=== PATIENT | male | born 1935 | race Caucasian/White ===

== ENCOUNTER 2018-11-15 09:47 | Inpatient (IN) ==
--- NOTE | 2018-11-15 10:15 | ERNOTE ---
Trauma/Assault HPI - Narrative Date of Service: 11/15/18 - General Stated Complaint: FALL Time Seen by Provider: 11/15/18 09:57 Source: patient, EMS Exam Limitations: no limitations - Immun/Allergies/Home Medications Immunizations: IMMUNIZATION HX Immunizations Up to Date Yes History of Influenza Vaccine Yes Hx Pneumococcal Vaccination Yes Allergies/Adverse Reactions: Allergies No Known Allergies Allergy (Verified 11/15/18 13:25) Home Medications: HOME MEDICATIONS Vit A/C/E/Zinc/Selenium/Copper [Vision Formula Tablet] 1 tab PO DAILY 04/01/18 [Last Taken Unknown] thiamine HCl (vitamin B1) 50 mg tablet 50 mg PO DAILY 04/06/18 [Last Taken Unknown] vitamin B complex tablet 1 tab PO DAILY 04/06/18 [Last Taken Unknown] - History of Present Illness Narrative: This patient is an 83-year-old gentleman who arrived by ambulance with a right leg injury. He slipped on the ice this morning and fell. He hit the back of his head. He is not sure if he lost consciousness. He denied headache to the nurse but told me he had a little bit of a headache. He also admits to a little bit of neck pain. When the ambulance arrived, he was alert and oriented x4 with no amnesia. His main complaint is right leg pain. He says that it hurts in his hip. He was noted to have shortening and external rotation by the paramedics. He also complains of right elbow pain. He received 50 mcg of fentanyl in the ambulance and again on arrival. Review of Systems - Narrative Narrative: His last intake was coffee and cereal at 5 AM. He denies high blood pressure, diabetes, heart disease. He takes only vitamins. - Review of Systems Constitutional: Absent: fever EYE: Absent: vision changes ENT: Absent: ear pain, nose congestion, nasal drainage, sore throat Respiratory: Absent: shortness of breath, cough Cardiology: Absent: chest pain, palpitations, syncope Gastrointestinal/Abdominal: Absent: nausea, vomiting, diarrhea, constipation, abdominal pain Genitourinary: Absent: frequency, pain, dysuria, hematuria Musculoskeletal: Present: neck pain, joint pain. Absent: back pain Skin: Present: other - Abrasion right forearm Neurological: Present: headache. Absent: anxiety, depressed, dizziness/light- headedness, numbness, tingling Endocrine: Present: no symptoms reported, other - No diabetes Hematologic/Lymphatic: Present: other - He is not on a blood thinner Psych: Absent: anxiety, depressed Medical History (Last Reviewed 11/15/18 @ 10:12 by Jacob Bates MD) Weight loss, abnormal (Acute) Chronic alcoholism (Chronic) Closed compression fracture of L2 lumbar vertebra (Chronic) Balance disorder (Chronic) Closed compression fracture of second lumbar vertebra (Acute) Onset Date: ~04/01/18 Cerebellar atrophy Onset Date: ~04/04/18 Elevated bilirubin Onset Date: ~04/01/18 EtOH dependence Onset Date: ~04/01/18 Frequent falls Onset Date: ~04/01/18 Peripheral neuropathy Onset Date: ~04/01/18 Restless leg syndrome Onset Date: Unknown Elbow pain, right Onset Date: ~04/29/15 due to fx Fracture, ulna, proximal Onset Date: ~04/2015 Right proximal olecranon ulna Surgical History: Surgical History (Last Reviewed 11/15/18 @ 10:12 by Jacob Bates MD) History of colonoscopy Onset Date: ~2013 Dr. Grullon[facility] History of open reduction and internal fixation (ORIF) procedure Onset Date: ~05/03/15 Right proximal olecranon ulna History of vasectomy Onset Date: ~1967 Family History: Family History (Last Reviewed 11/15/18 @ 13:38 by Deepika Cunha RN) Father , 54-MS No problems noted. Mother , 69 Colon cancer Social History: Preferred Language [place] Do you have any spiritism or No cultural preference? Smoking Status Former smoker Abuse History No History of abuse Psych History No pertinent hx Alcohol Use heavy Drug Use none (Last Updated 11/12/18 @ 11:39 by Timo Dejesus DO) No Social History Section defined Physical Exam - Physical Exam General Appearance: Present: wd/wn, alert, no apparent distress Head Exam: Present: normal inspection, no evidence of injury Eye Exam: Normal inspection: bilateral Ears, Nose, Throat: Present: normal ENT inspection Neck: Present: normal inspection, supple, other - Mild tenderness posteriorly Respiratory: Present: no respiratory distress, normal breath sounds, chest nontender, lungs clear Cardiovascular/Chest: Present: regular rate, rhythm, no murmur, normal p eripheral pulses Gastrointestinal/Abdominal: Present: normal bowel sounds, nontender, nondistended, soft, no organomegaly Extremity Exam: Present: no edema, other - The right femur appears to have deformity just proximal to the midportion. He has tenderness in that area and tenderness over the lateral right hip. Distal sensation and pulses are intact. He has no tenderness over the right shoulder or elbow. He has some tenderness and an abrasion of the ulnar aspect of the proximal forearm on the right. No wrist or hand tenderness. He has full range of motion of the right arm. Sensation and circulation are intact. Neurological Exam: Present: alert, oriented, normal mood/affect Skin Exam: Present: normal color, warm/dry Progress - Results and Orders Patient's Lab Results:: I have reviewed the patient's lab results. Results and Orders: Laboratory Tests 11/15/18 11/15/18 11/15/18 10:10 10:10 10:20 WBC 5.2 D Hgb 13.0 L Plt Count 158 Plasma Sodium 137 Potassium 4.2 Chloride 100 Carbon Dioxide 25.6 BUN 14 Creatinine 0.91 Random Glucose 127 H D AST 18 ALT 13 L Alkaline Phosphatase 81 Ethyl Alcohol Less than 3.0 - Vital Signs Patient's Vital Signs:: I have reviewed the patient's vital signs. Vital Signs: Vital Signs 11/15/18 09:48 11/15/18 10:01 Temperature 36.7 C Pulse Rate 56 L 58 L Respiratory Rate 16 16 Blood Pressure 172/88 H 167/84 H O2 Sat by Pulse Oximetry 100 100 - X-Ray X-Ray #1 X-Ray: hip Interpretation: Reviewed by me X-ray Comments: X-RAY REPORT ~[id number] CT/CT Head W/O *~ Exam Date: 11/15/2018 10:13 Ordering Physician: Jacob Bates MD HISTORY: Head trauma Additional history from technologist: fall last couple weeks, fell last night and again this morning, diabetic TECHNIQUE: Multiple noncontrast axial CT images of the head were obtained. Dose reduction techniques using the adjustment of the mA and/or kV according to patient size and/or use of AEC or iterative reconstruction were used in the acquisition of this exam. COMPARISON: 08/06/2013 FINDINGS: CT Head W/O *: Mild cerebral volume loss present, most likely age-related. No acute intracranial hemorrhage. No midline shift or herniation. [place] and white matter differentiation is grossly intact. No obvious soft tissue swelling or scalp hematoma noted. Skull grossly intact, without signs of depressed skull fracture. Visualized portions of the paranasal sinuses are clear. Mastoid air cells are grossly clear. IMPRESSION: 1. No acute intracranial hemorrhage or mass effect. 2. Additional comments as above. Electronically signed by Ana Joseph M.D.. Ana Joseph MD X-Ray #2 X-Ray: femur Interpretation: Reviewed by me X-ray Comments: X-RAY REPORT ~[id number] RAD/Femur 2 Views RT *~ Exam Date: 11/15/2018 10:46 Ordering Physician: Jacob Bates MD HISTORY/INDICATION: fall with pain Additional history from technologist: fall rt hip pain TECHNIQUE: AP and lateral views of the Right Femur. 6 images. COMPARISONS: None available. Femur 2 Views RT * There is a comminuted, displaced and mildly impacted fracture of the proximal right femur at the intertrochanteric/subtrochanteric region. There may be a rotatory component to the displacement of the distal fragment. Joint spaces are grossly unremarkable, as visualized. Soft tissues are grossly normal. IMPRESSION: Comminuted, displaced and mildly impacted fracture of the proximal right femur at the intertrochanteric/subtrochanteric region. Electronically signed by Ana Joseph M.D.. X-Ray #3 X-Ray: chest Interpretation: Reviewed by me X-ray Comments: X-RAY REPORT ~[id number] RAD/Chest Single View *~ Exam Date: 11/15/2018 10:56 Ordering Physician: Jacob Bates MD HISTORY: pre-op Additional history from other imaging: right proximal femoral intertrochanteric/subtrochanteric fracture. TECHNIQUE: 2 supine AP views of the chest were obtained . COMPARISONS: 04/06/2018 FINDINGS: Chest Single View *: Somewhat hyperinflated lungs with flattened hemidiaphragms, stable. No definite consolidation. Right basilar scarring, stable. Pulmonary vasculature is normal. No pneumothorax or pleural fluid collections apparent. Cardiac size within normal limits for AP technique. Vascular calcification overlying the aortic knob, stable. Trachea is in normal position given patient positioning. Osseous structures are grossly intact. IMPRESSION: 1. No acute cardiopulmonary findings. 2. Hyperinflated and flattened hemidiaphragms suggestive of underlying emphysema/COPD. Correlate clinically for risk factors. 3. Thoracic aortic atherosclerotic disease. Electronically signed by Ana Joseph M.D.. - CT/Ultrasound CT/Ultrasound Narrative: X-RAY REPORT ~[id number] CT/CT Cervical W/O *~ Exam Date: 11/15/2018 10:40 Ordering Physician: Jacob Bates MD HISTORY: fall with pain TECHNIQUE: Multiple noncontrast axial CT images of the cervical spine were obtained. Sagittal and coronal reconstructed images were also submitted for interpretation. Dose reduction techniques using the adjustment of the mA and/or kV according to patient size and/or use of AEC or iterative reconstruction were used in the acquisition of this exam. COMPARISON: No previous study available. FINDINGS: CT Cervical W/O *, with Coronal and Sagittal Reconstructions: Axial images demonstrate no definable fracture lucency or cortical discontinuity. Sagittal reconstructions demonstrate grossly normal craniocervical junction. Atlantodens interval demonstrates degenerative changes without abnormal widening. Prevertebral soft tissues are unremarkable. Vertebral bodies maintain normal height and alignment. Disc space narrowing, endplate degenerative changes and uncovertebral osteophytes are noted at C3-C4 and C5-C6 levels. Facet joints are in normal alignment. Facet joint degenerative changes noted predominantly affecting the right C2-C3, C4-C5 levels, and left C3-C4 level. Spinous processes are intact. Coronal reconstructions demonstrate intact C2 dens. Normal articulation of the C1 lateral masses with C2 and the occipital condyles. Lung apices are clear. Soft tissues of the neck grossly unremarkable other than vascular calcifications along the carotid artery suggestive of carotid artery atherosclerotic disease. IMPRESSION: 1. No evidence of acute cervical spine fracture. 2. Multilevel cervical spine degenerative disc disease/facet joint degenerative arthropathy. 3. Incidental bilateral carotid artery atherosclerotic disease. Clinical correlation is still recommended. If there is a persistent clinical concern for injury, consider further evaluation by MRI. Electronically signed by Ana Joseph M.D.. X-RAY REPORT ~[id number] CT/CT Head W/O *~ Exam Date: 11/15/2018 10:04 Ordering Physician: Jacob Bates MD HISTORY: fall with pain Additional history from technologist: None TECHNIQUE: Multiple noncontrast axial CT images of the head were obtained. Dose reduction techniques using the adjustment of the mA and/or kV according to patient size and/or use of AEC or iterative reconstruction were used in the acquisition of this exam. COMPARISON: 02/27/2018 FINDINGS: CT Head W/O *: Age-related cortical atrophy and periventricular white matter chronic ischemic changes are present. Intracranial atherosclerotic calcifications noted. Posterior fossa arachnoid cyst, stable. No acute intracranial hemorrhage. No midline shift or herniation. [place] and white matter differentiation is grossly intact. No obvious soft tissue swelling or scalp hematoma noted. Skull grossly intact, without signs of depressed skull fracture. There is a trace amount of fluid in the left maxillary sinus. Mastoid air cells are grossly clear. IMPRESSION: 1. No acute intracranial hemorrhage or mass effect. 2. Trace amount of fluid within the left maxillary sinus, which may be related to incidental sinusitis but correlate clinically for maxillary/facial bone injury. 3. Additional comments as above. Electronically signed by Ana Joseph M.D.. Ana Joseph MD - Progress/Reassessment Chief Complaint: Fall Departure Clinical Impression: Intertrochanteric fracture of right femur Qualifiers: Encounter type: initial encounter Fracture type: closed Fracture alignment: displaced Qualified Code(s): S72.141A - Displaced intertrochanteric fracture of right femur, initial encounter for closed fracture - Departure Disposition: Still a patient Condition: Fair Critical Care Time - Critical Care Critical Time Spent:: No
[2018-11-15 10:16] LABS: Hematocrit 37.2 % (42.0-52.0); Mean Cell Volume 101.6 fl (78-100); Mean Corpuscular Hemoglobin 35.5 pg (27-31); Mean Corpuscular Hgb Conc 34.9 g/dl (32-36); Mean Platelet Volume 9.4 fl (8-11.3); Neutrophil # 3.2 K/mm3 (1.3-6.0); Neutrophil % 61.1 % (42-75.0); Platelet Count 158 K/mm3 (150-450); Red Blood Count 3.66 M/mm3 (4.7-6.0); Red Cell Distribution Width 12.4 % (11.5-14.0); White Blood Count 5.2 K/mm3 (4.0-10.5)
[2018-11-15 10:28] LABS: Albumin * 3.7 gm/dl (3.4-5.0); Anion Gap 15.6 mmol/L (6.8-13.8); BUN/Creatinine Ratio 15.4 (9.0-21.6); Bilirubin, Total 0.9 mg/dL (0.0-1.1); Ca. Corrected For Albumin 8.3 mg/dL (8.4-10.2); Calcium * 8.4 mg/dL (7.9-10.9); Carbon Dioxide 25.6 mmol/L (24-32.6); Potassium 4.2 mmol/L (3.4-4.6); Total Protein 7.4 gm/dL (6.2-8.2)
[2018-11-15] MEDS ORDERED: MORPHINE SULFATE 4 MG/ML SYRG IV ONE (10:34)
[2018-11-15] MEDS ORDERED: LORazepam 2 MG/ML DISP.SYRIN IV ONE (10:45)
[2018-11-15] MEDS ORDERED: LORazepam 2 MG/ML DISP.SYRIN ONE (10:46)
[2018-11-15] MEDS ORDERED: DIPHTH,PERTUSS(ACELL),TET VAC 0.5 ML VIAL IM ONE (10:57)
--- NOTE | 2018-11-15 13:05 | HP ---
Chief Complaint - Chief Complaint Date of Service: 11/15/18 Time of Service: 12:15 Chief Complaint: Bert casillas is an 83-year-old male who was out walking on the snow and slipped on the underlying ice and fell onto his right hip. He was unable to get up due to severe pain.. History of Present Illness: A neighbor saw him fall and summoned help. He also landed on his right forearm and elbow and has a abrasion to that. He is able to flex and extend and rotate the arm and shoulder without difficulty. Initially he had some pain in the right shoulder but that seems to have dissipated. I just met Bert in the office last week and did a physical exam at that time. He actually enjoys very good health, takes no medications, and doesn't doctor very often. He does drink alcohol to excess and drinks between a 6 and a 12 pack each day. His laboratory work is completely normal including liver enzymes. Medical History (Last Reviewed 11/15/18 @ 10:12 by Jacob Bates MD) Weight loss, abnormal (Acute) Chronic alcoholism (Chronic) Closed compression fracture of L2 lumbar vertebra (Chronic) Balance disorder (Chronic) Closed compression fracture of second lumbar vertebra (Acute) Onset Date: ~04/01/18 Cerebellar atrophy Onset Date: ~04/04/18 Elevated bilirubin Onset Date: ~04/01/18 EtOH dependence Onset Date: ~04/01/18 Frequent falls Onset Date: ~04/01/18 Peripheral neuropathy Onset Date: ~04/01/18 Restless leg syndrome Onset Date: Unknown Elbow pain, right Onset Date: ~04/29/15 due to fx Fracture, ulna, proximal Onset Date: ~04/2015 Right proximal olecranon ulna Surgical History: Surgical History (Last Reviewed 11/15/18 @ 10:12 by Jacob Bates MD) History of colonoscopy Onset Date: ~2013 Dr. [facility]ullon[facility] History of open reduction and internal fixation (ORIF) procedure Onset Date: ~05/03/15 Right proximal olecranon ulna History of vasectomy Onset Date: ~1967 Family History: Family History (Last Reviewed 11/15/18 @ 09:58 by Shweta Mast RN) Father , 54-MS No problems noted. Mother , 69 Colon cancer Social History: Preferred Language [place] Citizen Do you have any congregational or No cultural preference? Smoking Status Former smoker Abuse History No History of abuse Psych History No pertinent hx Alcohol Use heavy Drug Use none (Last Updated 11/12/18 @ 11:39 by Timo Dejesus DO) No Social History Section defined Review Of Systems (GEN) - Review of Systems Generalized/Overall Review: Present: Malaise EENTM: Present: No Symptoms Reported Respiratory: Present: No Symptoms Reported Cardiac: Present: No Symptoms Reported Abdominal: Present: No Symptoms Reported Genitourinary: Present: No Symptoms Reported Musculoskeletal: Present: Joint Pain - Right hip Neurological: Present: No Symptoms Reported Skin: Present: No Symptoms Reported Endocrine: Present: No Symptoms Reported Misc: All systems neg except as marked Immunizations: IMMUNIZATION HX Immunizations Up to Date Yes History of Influenza Vaccine Yes Hx Pneumococcal Vaccination Yes Allergies/Adverse Reactions: Allergies Allergy/AdvReac Type Severity Reaction Status Date / Time No Known Allergies Allergy Verified 07/08/18 10:12 Home Medications: HOME MEDICATIONS Vit A/C/E/Zinc/Selenium/Copper [Vision Formula Tablet] 1 tab PO DAILY 04/01/18 [Last Taken Unknown] thiamine HCl (vitamin B1) 50 mg tablet 50 mg PO DAILY 04/06/18 [Last Taken Unknown] vitamin B complex tablet 1 tab PO DAILY 04/06/18 [Last Taken Unknown] Exam - Exam Vital Signs: Vital Signs - Last Taken Temp 36.7 C 11/15/18 09:48 Pulse 60 11/15/18 10:12 Resp 14 11/15/18 10:12 BP 156/74 H 11/15/18 10:12 Pulse Ox 100 11/15/18 10:12 Constitutional: Present: Alert, Oriented x3, Cooperative, Well developed, Well nourished, No distress ENT Exam: Present: normal ENT inspection, hearing grossly normal, pharynx normal, TMs normal Eye Exam: bilateral eye: normal inspection, PERRL, EOMI Neck: Present: non-tender, full range of motion, supple, normal inspection, trachea midline Back Exam: Present: normal inspection, no CVA tenderness, no vertebral tenderness Breasts: Present: Exam deferred Respiratory: Present: chest non-tender, lungs clear, normal breath sounds, no respiratory distress, no accessory muscle use Cardiovascular/Chest: Present: normal peripheral pulses, regular rate, rhythm, no chest tenderness, no edema, no gallop, no JVD, no murmur, no rub Peripheral Pulses: carotid (R): 2+, carotid (L): 2+, radial (R): 2+, radial (L): 2+ Abdomen: Present: Normal bowel sounds, soft, nontender, nondistended, no rebound tenderness, no hepatospenomegaly, no masses /Rectal: Present: Exam deferred Extremity: Present: normal range of motion - Except the right hip which is externally rotated and shortened. 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, no motor/sensory deficits, alert, normal mood/affect, oriented x 3 Appearance: Present: appropriate appearance, appropriate insight, neat, no memory impairment Eye contact: Present: cooperative, good eye contact, normal speech, avoids eye contact Thoughts: Present: normal thought pattern, no apparent hallucination Diagnostic Studies: Abnormal Lab Results 11/15/18 11/15/18 Range/Units 10:10 10:10 RBC 3.66 L (4.7-6.0) M/mm3 Hgb 13.0 L (13.5-18.0) gm/dL Hct 37.2 L (42.0-52.0) % MCV 101.6 H (78-100) fl MCH 35.5 H (27-31) pg Lymphocytes # 1.43 L (1.5-3.5) k/mm3 Anion Gap 15.6 H (6.8-13.8) mmol/L Random Glucose 127 H D (70-110) mg/dL Calcium Adj for Albumin 8.3 L (8.4-10.2) mg/dL ALT 13 L (19-67) U/L Laboratory Results WBC 5.2 K/mm3 (4.0-10.5) D 11/15/18 10:10 RBC 3.66 M/mm3 (4.7-6.0) L 11/15/18 10:10 Hgb 13.0 gm/dL (13.5-18.0) L 11/15/18 10:10 Hct 37.2 % (42.0-52.0) L 11/15/18 10:10 MCV 101.6 fl (78-100) H 11/15/18 10:10 MCH 35.5 pg (27-31) H 11/15/18 10:10 MCHC 34.9 g/dl (32-36) 11/15/18 10:10 RDW 12.4 % (11.5-14.0) 11/15/18 10:10 Plt Count 158 K/mm3 (150-450) 11/15/18 10:10 MPV 9.4 fl (8-11.3) 11/15/18 10:10 Immature Gran % (Auto) 0.40 % (0.001-0.429) 11/15/18 10:10 Immature Gran # (Auto) 0.02 K/mm3 (0.000-0.0310) 11/15/18 10:10 Neutrophils % 61.1 % (42-75.0) 11/15/18 10:10 Lymphocytes % 27.7 % (20-51) 11/15/18 10:10 Monocytes % 8.3 % (0.0-9) 11/15/18 10:10 Eosinophils % 1.9 % (0.0-3.0) 11/15/18 10:10 Basophils % 0.6 % (0.0-1.0) 11/15/18 10:10 Nucleated RBC % 0.0 k/mm3 (0-1) 11/15/18 10:10 Neutrophils # 3.2 K/mm3 (1.3-6.0) 11/15/18 10:10 Lymphocytes # 1.43 k/mm3 (1.5-3.5) L 11/15/18 10:10 Monocytes # 0.4 k/mm3 (0.0-1.0) 11/15/18 10:10 Eosinophils # 0.1 k/mm3 (0.0-0.7) 11/15/18 10:10 Absolute Basophils 0.0 k/mm3 (0.0-0.1) 11/15/18 10:10 Sodium 137 mmol/L (132-142) 11/15/18 10:10 Plasma Sodium 137 mmol/L (130-142) 11/15/18 10:10 Potassium 4.2 mmol/L (3.4-4.6) 11/15/18 10:10 Chloride 100 mmol/L (97-106) 11/15/18 10:10 Carbon Dioxide 25.6 mmol/L (24-32.6) 11/15/18 10:10 Anion Gap 15.6 mmol/L (6.8-13.8) H 11/15/18 10:10 BUN 14 mg/dL (6-23) 11/15/18 10:10 Creatinine 0.91 mg/dL (0.4-1.4) 11/15/18 10:10 Est GFR (Non-Af Amer) 85 mL/min (60-130) 11/15/18 10:10 BUN/Creatinine Ratio 15.4 (9.0-21.6) 11/15/18 10:10 Random Glucose 127 mg/dL (70-110) H D 11/15/18 10:10 Calcium 8.4 mg/dL (7.9-10.9) 11/15/18 10:10 Calcium Adj for Albumin 8.3 mg/dL (8.4-10.2) L 11/15/18 10:10 Total Bilirubin 0.9 mg/dL (0.0-1.1) 11/15/18 10:10 AST 18 U/L (0-48) 11/15/18 10:10 ALT 13 U/L (19-67) L 11/15/18 10:10 Alkaline Phosphatase 81 U/L (50-170) 11/15/18 10:10 Total Protein 7.4 gm/dL (6.2-8.2) 11/15/18 10:10 Albumin 3.7 gm/dl (3.4-5.0) 11/15/18 10:10 Ethyl Alcohol Less than 3.0 mg/dL (0.0-10.0) 11/15/18 10:20 Assessment/Plan - Narrative Narrative: 1. I reviewed the x-rays, EKG, and lab work as well as performed a physical exam in preparation for ORIF of the right hip. 2. He is medically cleared for the anticipated right hip surgery. 3. Dress the abrasions of the right forearm with nonstick dressing 4. Hemoglobin is 13 g. MCV slightly elevated at 101.6. Otherwise lab is essentially normal. 5. Twelve-lead EKG stat - Assessment/Plan (1) Intertrochanteric fracture of right femur Problem: Acute Qualifiers: Encounter type: initial encounter Fracture type: closed Fracture alignment: displaced Qualified Code(s): S72.141A - Displaced intertrochanteric fracture of right femur, initial encounter for closed fracture (2) Fall Problem: Acute (3) Chronic alcoholism Problem: Chronic
[2018-11-15] MEDS ORDERED: THIAMINE HCL 100 MG in NORMAL SALINE 50 ML IV ONE (13:09)
--- NOTE | 2018-11-15 13:16 | CONS ---
- Reason for consultation (1) Intertrochanteric fracture of right femur Date of Service: 11/15/18 HPI - General Date of Service: 11/15/18 Narrative: Patient presents today s/p a fall with right hip pain. He was brought to ER, XR reveals right intertrochanteric femur fracture. Patient states he was walking outside when he fell on snow/ice and had immediate hip pain. He reports mild shoulder and elbow pain currently. No other significant acute symptoms. He notes his pain is better with rest, worse with movement. Source: patient, family - Exam Limitations: no limitations - History of Present Illness Allergies/Adverse Reactions: Allergies No Known Allergies Allergy (Verified 07/08/18 10:12) Home Medications: Home Medications Medication Instructions Recorded Last Taken Vit A/C/E/Zinc/Selenium/Copper 1 tab PO DAILY 04/01/18 Unknown [Vision Formula Tablet] thiamine HCl (vitamin B1) 50 mg 50 mg PO DAILY 04/06/18 Unknown tablet vitamin B complex tablet 1 tab PO DAILY 04/06/18 Unknown Procedures Application of splint (04/29/15) Closed [endoscopic] biopsy of large intestine (11/23/08) Discission of secondary membrane [after cataract] (08/27/05) Esophagogastroduodenoscopy [EGD] with closed biopsy (11/23/08) Insertion of intraocular lens prosthesis at time of cataract extraction, one- stage (02/28/04) Open reduction of fracture with internal fixation, radius and ulna (05/03/15) Phacoemulsification and aspiration of cataract (02/28/04) Physical Examination - Exam Vital Signs: Vital Signs - Last Taken Temp 36.7 C 11/15/18 09:48 Pulse 56 L 11/15/18 12:02 Resp 16 11/15/18 12:02 BP 136/86 11/15/18 12:02 Pulse Ox 99 11/15/18 12:02 O2 Oxygen Delivery Method Room Air Constitutional: Present: Alert, Cooperative, Mild distress Respiratory: Present: no respiratory distress Extremity: Present: other - RLE--> SILT, 5/5 PF/DF, distal capillary refill brisk, diffuse tenderness to right hip, no obvious wounds or abrasions Eye contact: Present: cooperative - Results and Findings: Narrative: -83 y/o male s/p fall presents to ER with right intertrochanteric femur fracture - Discussed treatment of conservative vs. surgical interventions including risk and benefits. These included, but were not limited to infection, bleeding, continued pain, malunion/non-union fracture, DVT, cardiac arrest, stroke. Patient wishes to proceed with surgical intervention. Consent was obtained. Patient was seen by medicine, Dr. Dejesus has cleared for surgical intervention. Patient will undergo right hip closed reduction with cephalmedullary nailing of intertrochanteric femur fracture with Dr. Saleh. Patient has been admitted and will be monitored post-operatively. All patients questions have been answered appropriately. Lab/Microbiology results last 24 hrs: Abnormal/Pending Laboratory Last 24 HRS 11/15/18 11/15/18 10:10 10:10 RBC 3.66 L Hgb 13.0 L Hct 37.2 L MCV 101.6 H MCH 35.5 H Lymphocytes # 1.43 L Anion Gap 15.6 H Random Glucose 127 H D Calcium Adj for Albumin 8.3 L ALT 13 L - Assessments/Findings (1) Intertrochanteric fracture of right femur Problem: Acute Qualifiers: Encounter type: initial encounter Fracture type: closed Fracture alig nment: displaced Qualified Code(s): S72.141A - Displaced intertrochanteric fracture of right femur, initial encounter for closed fracture
[2018-11-15] MEDS ORDERED: ceFAZolin SODIUM 1 GM VIAL IV ONE (13:19)
--- NOTE | 2018-11-15 13:42 | ANES ---
Anesthesia Pre Procedure Eval Vitals/Labs: Last Vital Signs Temp 36.8 C 11/15/18 13:04 Pulse 58 L 11/15/18 13:04 Resp 16 11/15/18 13:04 BP 151/77 H 11/15/18 13:04 Pulse Ox 100 11/15/18 13:04 HOME MEDICATIONS Vit A/C/E/Zinc/Selenium/Copper [Vision Formula Tablet] 1 tab PO DAILY 04/01/18 [Last Taken Unknown] thiamine HCl (vitamin B1) 50 mg tablet 50 mg PO DAILY 04/06/18 [Last Taken Unknown] vitamin B complex tablet 1 tab PO DAILY 04/06/18 [Last Taken Unknown] Allergies/Adverse Reactions: Allergies Allergy/AdvReac Type Severity Reaction Status Date / Time No Known Allergies Allergy Verified 11/15/18 13:25 - Planned Procedure Planned Procedure: ORIF hip Medication List Reviewed:: Yes Allergies Verified: Yes Medical History (Last Reviewed 11/15/18 @ 13:27 by Ermias Murcia CRNA) Weight loss, abnormal (Acute) Chronic alcoholism (Chronic) Closed compression fracture of L2 lumbar vertebra (Chronic) Balance disorder (Chronic) Closed compression fracture of second lumbar vertebra (Acute) Onset Date: ~04/01/18 Cerebellar atrophy Onset Date: ~04/04/18 Elevated bilirubin Onset Date: ~04/01/18 EtOH dependence Onset Date: ~04/01/18 Frequent falls Onset Date: ~04/01/18 Peripheral neuropathy Onset Date: ~04/01/18 Restless leg syndrome Onset Date: Unknown Elbow pain, right Onset Date: ~04/29/15 due to fx Fracture, ulna, proximal Onset Date: ~04/2015 Right proximal olecranon ulna Surgical History (Last Reviewed 11/15/18 @ 13:28 by Ermias Murcia CRNA) History of colonoscopy Onset Date: ~2013 Dr. Grullon-[facility] History of open reduction and internal fixation (ORIF) procedure Onset Date: ~05/03/15 Right proximal olecranon ulna History of vasectomy Onset Date: ~1967 Family History (Last Reviewed 11/15/18 @ 13:28 by Ermias Murcia CRNA) Father , 54-MS No problems noted. Mother , 69 Colon cancer - Family Anesthesia History Family History:: no untoward family reactions to anesthesia, no familial bleeding tendencies, no family history of clotting disorders, no family history of premature - Airway/Neck/Teeth Mallampatti Score: 3 Thyromental (T-M) distance: > 6 cm Mandibulo Hyoid distance: > 3 cm - Respiratory Respiratory Physical: lungs clear Smoking Status: Former smoker Discussed smoking cessation including day of surgery: No Sleep Apnea currently treated: No Sleep Apnea by current assessment: No Discussed Risks/Treatment of JUDAH: No - Cardiovascular Tolerate Activity: Fair Heart Sounds: S1 & S2, Regular - Anesthesia Assessment and Plan ASA Class: PS, III, E Anesthesia Type Plan: General LMA
[2018-11-15] MEDS ORDERED: RINGER'S SOLUTION,LACTATED 1,000 ML IV PRN (13:45)
--- NOTE | 2018-11-15 15:14 | ANES ---
Post Anesthesia Discharge - Transfer of Care Transfer of Care handoff given to nurse: Yes - Discharge from PACU Discharge from PACU when meets criteria: Yes - Discharge to ASU Discharge to ASU-no complications/pt stable: Yes
--- NOTE | 2018-11-15 15:20 | ANES ---
Post Anesthesia Assessment - Vital Signs Vitals: Last Vital Signs Temp 36.9 C 11/15/18 15:15 Pulse 76 11/15/18 15:15 Resp 18 11/15/18 15:15 BP 139/64 11/15/18 15:15 Pulse Ox 94 11/15/18 15:15 Airway Patency: Normal - Mental Status Level Of Consciousness: Awake - Pain Level Pain Score: 0 - N/V Assessment Nausea/Vomiting Presence: None Dehydration:: No
[2018-11-15] MEDS ORDERED: MAGNESIUM HYDROXIDE 30 ML UDC PO PRN (15:53)
[2018-11-15] MEDS ORDERED: ZOLPIDEM TARTRATE 5 MG TABLET PO PRN (15:53)
[2018-11-15] MEDS ORDERED: ACETAMINOPHEN 500 MG TABLET PO PRN (15:53)
[2018-11-15] MEDS ORDERED: ONDANSETRON HCL/PF 2 MG/ML VIAL IV PRN (15:53)
[2018-11-15] MEDS ORDERED: diphenhydrAMINE HCL 50 MG/ML VIAL IV PRN (15:53)
[2018-11-15] MEDS ORDERED: MAG HYDROX/ALUMINUM HYD/SIMETH 30 ML UDC PO PRN (15:53)
[2018-11-15] MEDS ORDERED: NORMAL SALINE 1,000 ML IV PRN (16:09)
[2018-11-15] MEDS: oxyCODONE HCL/ACETAMINOPHEN 1 TAB TABLET PO PRN (19:56)
[2018-11-15] MEDS: SENNOSIDES/DOCUSATE SODIUM 1 TAB TABLET PO SCH (20:02)
[2018-11-16] MEDS: oxyCODONE HCL/ACETAMINOPHEN 1 TAB TABLET PO PRN ×3 (05:06→15:05)
[2018-11-16 05:50] LABS: Hematocrit 30.1 % (42.0-52.0); Mean Cell Volume 104.5 fl (78-100); Mean Corpuscular Hemoglobin 34.7 pg (27-31); Mean Corpuscular Hgb Conc 33.2 g/dl (32-36); Neutrophil % 62.7 % (42-75.0); Platelet Count 140 K/mm3 (150-450); Red Blood Count 2.88 M/mm3 (4.7-6.0); Red Cell Distribution Width 12.6 % (11.5-14.0); White Blood Count 4.8 K/mm3 (4.0-10.5)
[2018-11-16 05:58] LABS: Anion Gap 12.8 mmol/L (6.8-13.8); BUN/Creatinine Ratio 15.3 (9.0-21.6); Calcium * 8.2 mg/dL (7.9-10.9); Carbon Dioxide 26.4 mmol/L (24-32.6); Estimated Creat Clear 60.8; Potassium 4.2 mmol/L (3.4-4.6)
[2018-11-16] MEDS: THIAMINE HCL 100 MG TABLET PO SCH (08:42)
[2018-11-16] MEDS: VITAMIN B COMP W-C 1 TAB TABLET PO SCH (08:42)
[2018-11-16] MEDS: BETA-CAROTENE(A) W-C , E/MIN 1 TAB TABLET PO SCH (08:42)
--- NOTE | 2018-11-16 09:04 | PN ---
Subjective - Date and Time Seen Date: 11/16/18 Time: 08:00 Subjective Narrative: Bert underwent ORIF of the right hip to repair a comminuted intertrochanteric fracture. He's had no intra-or postoperative complications. This morning he is alert and sitting up in a chair and eating breakfast without difficulty. He has no complaints other than soreness in the right hip area. There has not been any signs or symptoms of alcohol withdrawal. Physical therapy has had him standing to transfer and will work with him more today. Objective - Review of Systems Generalized/Overall Review: Reports: No Symptoms Reported EENTM: Reports: No Symptoms Reported Respiratory: Reports: No Symptoms Reported Cardiac: Reports: No Symptoms Reported Abdominal: Reports: No Symptoms Reported Genitourinary Symptoms: Reports: No Symptoms Reported Musculoskeletal Complaints: Reports: Joint Pain - Right hip Neurological: Reports: No Symptoms Reported Skin: Reports: No Symptoms Reported Endocrine: Reports: No Symptoms Reported Misc: All systems neg except as marked - Vitals Vitals: Last Vital Signs Temp 36.4 C 11/16/18 06:15 Pulse 75 11/16/18 06:15 Resp 16 11/16/18 06:15 BP 107/57 11/16/18 06:15 Pulse Ox 100 11/16/18 06:15 - Abnormal Lab Findings Abnormal Lab Findings: Abnormal Lab Results 11/15/18 11/15/18 11/16/18 Range/Units 10:10 10:10 05:20 RBC 3.66 L 2.88 L (4.7-6.0) M/mm3 Hgb 13.0 L 10.0 L (13.5-18.0) gm/dL Hct 37.2 L 30.1 L (42.0-52.0) % MCV 101.6 H 104.5 H (78-100) fl MCH 35.5 H 34.7 H (27-31) pg Plt Count 140 L (150-450) K/mm3 Monocytes % 9.2 H (0.0-9) % Lymphocytes # 1.43 L 1.28 L (1.5-3.5) k/mm3 Anion Gap 15.6 H (6.8-13.8) mmol/L Random Glucose 127 H D (70-110) mg/dL Calcium Adj for Albumin 8.3 L (8.4-10.2) mg/dL ALT 13 L (19-67) U/L 11/16/18 Range/Units 05:20 RBC (4.7-6.0) M/mm3 Hgb (13.5-18.0) gm/dL Hct (42.0-52.0) % MCV (78-100) fl MCH (27-31) pg Plt Count (150-450) K/mm3 Monocytes % (0.0-9) % Lymphocytes # (1.5-3.5) k/mm3 Anion Gap (6.8-13.8) mmol/L Random Glucose 131 H (70-110) mg/dL Calcium Adj for Albumin (8.4-10.2) mg/dL ALT (19-67) U/L - EKG/Xray Findings EKG: NSR EKG read: Interp. by me XRAY: hip Interpretation: Reviewed by me - Exam Constitutional: Present: Alert, Oriented x3, Cooperative, Well developed, Well nourished, No distress ENT Exam: Present: normal ENT inspection, hearing grossly normal, pharynx normal, TMs normal Neck: Present: non-tender, full range of motion, supple, normal inspection, trachea midline Breasts: Present: Exam deferred Respiratory: Present: chest non-tender, lungs clear, normal breath sounds, no respiratory distress, no accessory muscle use Cardiovascular/Chest: Present: normal peripheral pulses, regular rate, rhythm, no chest tenderness, no edema, no gallop, no JVD, no murmur, no rub Abdomen: Present: Normal bowel sounds, soft, nontender, nondistended, no rebound tenderness, no hepatospenomegaly, no masses /Rectal: Present: Exam deferred, External genitalia normal Extremity: Present: normal range of motion - Except the right hip, non-tender, normal inspection, no pedal edema, no calf tenderness, normal capillary refill, pelvis stable Skin Exam: Present: normal color, warm/dry, no cyanosis Lymphatic: Present: no adenopathy Neurologic: Present: 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 Monitor for signs of alcohol withdrawal 2. Progress activity with physical therapy as tolerated 3. Pain management as needed (directed by orthopedics) 4. Repeat CBC tomorrow morning - Problems/Diagnosis (1) Intertrochanteric fracture of right femur Problem: Acute Qualifiers: Encounter type: initial encounter Fracture type: closed Fracture alignment: displaced Qualified Code(s): S72.141A - Displaced intertrochanteric fracture of right femur, initial encounter for closed fracture (2) Fall Problem: Acute (3) Chronic alcoholism Problem: Chronic
[2018-11-16] MEDS: ENOXAPARIN SODIUM 40 MG/0.4 ML SYRG SC SCH (15:05)
[2018-11-16] MEDS: SENNOSIDES/DOCUSATE SODIUM 1 TAB TABLET PO SCH (21:06)
[2018-11-17] MEDS: oxyCODONE HCL/ACETAMINOPHEN 1 TAB TABLET PO PRN ×4 (04:01→21:26)
[2018-11-17 05:29] LABS: Hematocrit 25.6 % (42.0-52.0); Hemoglobin 8.6 gm/dL (13.5-18.0); Mean Cell Volume 104.9 fl (78-100); Mean Corpuscular Hemoglobin 35.2 pg (27-31); Mean Corpuscular Hgb Conc 33.6 g/dl (32-36); Mean Platelet Volume 9.8 fl (8-11.3); Neutrophil # 4.9 K/mm3 (1.3-6.0); Neutrophil % 76.2 % (42-75.0); Platelet Count 117 K/mm3 (150-450); Red Blood Count 2.44 M/mm3 (4.7-6.0); Red Cell Distribution Width 12.6 % (11.5-14.0); White Blood Count 6.4 K/mm3 (4.0-10.5)
[2018-11-17 05:34] LABS: Anion Gap 12.2 mmol/L (6.8-13.8); BUN/Creatinine Ratio 20.8 (9.0-21.6); Calcium * 8.2 mg/dL (7.9-10.9); Carbon Dioxide 25.3 mmol/L (24-32.6); Estimated Creat Clear 56.2; Potassium 4.5 mmol/L (3.4-4.6)
--- NOTE | 2018-11-17 08:04 | PN ---
Subjective - Date and Time Seen Date: 11/16/18 Time: 08:15 Subjective Narrative: Patient reports no acute events. He has moderate pain with ambulating, no significant pain while sitting in chair. He notes no other significant symptoms. Objective - Vitals Vitals: Last Vital Signs Temp 37.4 C 11/17/18 07:00 Pulse 72 11/17/18 07:00 Resp 18 11/17/18 07:00 BP 113/54 11/17/18 07:00 Pulse Ox 98 11/17/18 07:00 - Abnormal Lab Findings Abnormal Lab Findings: Abnormal Lab Results 11/17/18 11/17/18 Range/Units 05:10 05:10 RBC 2.44 L (4.7-6.0) M/mm3 Hgb 8.6 L (13.5-18.0) gm/dL Hct 25.6 L (42.0-52.0) % MCV 104.9 H (78-100) fl MCH 35.2 H (27-31) pg Plt Count 117 L (150-450) K/mm3 Immature Gran % (Auto) 0.60 H (0.001-0.429) % Immature Gran # (Auto) 0.04 H (0.000-0.0310) K/mm3 Neutrophils % 76.2 H (42-75.0) % Lymphocytes % 14.3 L (20-51) % Lymphocytes # 0.92 L (1.5-3.5) k/mm3 Random Glucose 141 H (70-110) mg/dL - Exam Constitutional: Present: Alert, Cooperative, No distress Respiratory: Present: no respiratory distress Extremity: Present: other - RLE--> SILT, distal capillary refill brisk, 5/5 PF/DF, minimal drainage on bandages, diffuse mild ttp over right hip Eye contact: Present: cooperative Thoughts: Present: normal thought pattern Cauti Physician Documentation - Urinary Catheter Management Urethral (Gao) Urethral Indwelling: No Date of Insertion: 11/15/18 Time of Insertion: 14:00 Date of Removal: 11/16/18 Time of Removal: 07:05 Assessment/Plan Plan Narrative: - 83 y/o female post-op day#1 s/p closed reduction with cephalomedullary nailing of right intertrochanteric femur fracture - WBAT, assistance as needed - PT/OT progress as tolerated - DVT Prophylaxis lovenox, SCDs in bed, jessa hose - PO diet as tolerated - PO pain medication PRN - Chronic medication conditions per medicine - Problems/Diagnosis (1) Intertrochanteric fracture of right femur Problem: Acute Qualifiers: Encounter type: initial encounter Fracture type: closed Fracture alignment: displaced Qualified Code(s): S72.141A - Displaced intertrochanteric fracture of right femur, initial encounter for closed fracture
[2018-11-17 08:16] LABS: Iron 22 mcg/dL (35-120); Transferrin Sat. (% Sat.) 11 % (15-55)
[2018-11-17 08:44] LABS: Folate 16.7 ng/mL (8.6-58.9)
[2018-11-17] MEDS: THIAMINE HCL 100 MG TABLET PO SCH (09:01)
[2018-11-17] MEDS: VITAMIN B COMP W-C 1 TAB TABLET PO SCH (09:01)
[2018-11-17] MEDS: BETA-CAROTENE(A) W-C , E/MIN 1 TAB TABLET PO SCH (09:01)
[2018-11-17] MEDS: ENOXAPARIN SODIUM 40 MG/0.4 ML SYRG SC SCH (14:28)
--- NOTE | 2018-11-17 16:10 | PN ---
Subjective - Date and Time Seen Date: 11/17/18 Time: 08:15 Subjective Narrative: Patient reports moderate pain, worse with WB, better with rest. He has no significant pain while sitting in chair. He has been up and transferred with PT. He reports no other acute symptoms. Objective - Vitals Vitals: Last Vital Signs Temp 37.6 C 11/17/18 15:13 Pulse 94 11/17/18 15:13 Resp 16 11/17/18 15:13 BP 139/61 11/17/18 15:13 Pulse Ox 95 11/17/18 15:13 - Abnormal Lab Findings Abnormal Lab Findings: Abnormal Lab Results 11/17/18 11/17/18 11/17/18 Range/Units 05:10 05:10 05:10 RBC 2.44 L (4.7-6.0) M/mm3 Hgb 8.6 L (13.5-18.0) gm/dL Hct 25.6 L (42.0-52.0) % MCV 104.9 H (78-100) fl MCH 35.2 H (27-31) pg Plt Count 117 L (150-450) K/mm3 Immature Gran % (Auto) 0.60 H (0.001-0.429) % Immature Gran # (Auto) 0.04 H (0.000-0.0310) K/mm3 Neutrophils % 76.2 H (42-75.0) % Lymphocytes % 14.3 L (20-51) % Lymphocytes # 0.92 L (1.5-3.5) k/mm3 Retic Hgb Content 38.5 H (29-35) pg Random Glucose 141 H (70-110) mg/dL Iron (35-120) mcg/dL TIBC (260-445) mcg/dL Transferrin % Sat (15-55) % Ferritin (26-388) ng/mL 11/17/18 11/17/18 Range/Units 05:10 05:10 RBC (4.7-6.0) M/mm3 Hgb (13.5-18.0) gm/dL Hct (42.0-52.0) % MCV (78-100) fl MCH (27-31) pg Plt Count (150-450) K/mm3 Immature Gran % (Auto) (0.001-0.429) % Immature Gran # (Auto) (0.000-0.0310) K/mm3 Neutrophils % (42-75.0) % Lymphocytes % (20-51) % Lymphocytes # (1.5-3.5) k/mm3 Retic Hgb Content (29-35) pg Random Glucose (70-110) mg/dL Iron 22 L (35-120) mcg/dL TIBC 208 L (260-445) mcg/dL Transferrin % Sat 11 L (15-55) % Ferritin 500 H (26-388) ng/mL - Exam Constitutional: Present: Alert, Cooperative, No distress Respiratory: Present: no respiratory distress Extremity: Present: other - RLE--> bandages no significant drainage, c/d/i, SILT, distal capillary refill brisk, 5/5 PF/DF, diffuse ttp over right hip Cauti Physician Documentation - Urinary Catheter Management Urethral (Gao) Urethral Indwelling: No Date of Insertion: 11/15/18 Time of Insertion: 14:00 Date of Removal: 11/16/18 Time of Removal: 07:05 Assessment/Plan Plan Narrative: - 83 y/o female post-op day#2 s/p closed reduction with cephalomedullary nailing of right intertrochanteric femur fracture - WBAT, assistance as needed - PT/OT progress as tolerated - DVT Prophylaxis lovenox, SCDs in bed, jessa hose - PO diet as tolerated - PO pain medication PRN - Chronic medication conditions per medicine - Problems/Diagnosis (1) Intertrochanteric fracture of right femur Problem: Acute Qualifiers: Encounter type: initial encounter Fracture type: closed Fracture alignment: displaced Qualified Code(s): S72.141A - Displaced intertrochanteric fracture of right femur, initial encounter for closed fracture
--- NOTE | 2018-11-17 18:41 | PN ---
Subjective - Date and Time Seen Date: 11/17/18 Time: 07:55 Subjective Narrative: Mr. casillas is doing very well postop day #2. He has been up and walking with a walker and assistance. He is eating well. No fever or other constitutional problems. Is showing no signs of alcohol withdrawal. He will be ready for discharge tomorrow to go to a rehabilitation facility. Objective - Review of Systems Generalized/Overall Review: Reports: No Symptoms Reported EENTM: Reports: No Symptoms Reported Respiratory: Reports: No Symptoms Reported Cardiac: Reports: No Symptoms Reported Abdominal: Reports: No Symptoms Reported Genitourinary Symptoms: Reports: No Symptoms Reported Musculoskeletal Complaints: Reports: No Symptoms Reported - Except pain in the right hip from the fracture and his ORIF Neurological: Reports: No Symptoms Reported Skin: Reports: No Symptoms Reported Endocrine: Reports: No Symptoms Reported - Vitals Vitals: Last Vital Signs Temp 37.6 C 11/17/18 15:13 Pulse 94 11/17/18 15:13 Resp 16 11/17/18 15:13 BP 139/61 11/17/18 15:13 Pulse Ox 95 11/17/18 15:13 - Abnormal Lab Findings Abnormal Lab Findings: Abnormal Lab Results 11/17/18 11/17/18 11/17/18 Range/Units 05:10 05:10 05:10 RBC 2.44 L (4.7-6.0) M/mm3 Hgb 8.6 L (13.5-18.0) gm/dL Hct 25.6 L (42.0-52.0) % MCV 104.9 H (78-100) fl MCH 35.2 H (27-31) pg Plt Count 117 L (150-450) K/mm3 Immature Gran % (Auto) 0.60 H (0.001-0.429) % Immature Gran # (Auto) 0.04 H (0.000-0.0310) K/mm3 Neutrophils % 76.2 H (42-75.0) % Lymphocytes % 14.3 L (20-51) % Lymphocytes # 0.92 L (1.5-3.5) k/mm3 Retic Hgb Content 38.5 H (29-35) pg Random Glucose 141 H (70-110) mg/dL Iron (35-120) mcg/dL TIBC (260-445) mcg/dL Transferrin % Sat (15-55) % Ferritin (26-388) ng/mL 11/17/18 11/17/18 Range/Units 05:10 05:10 RBC (4.7-6.0) M/mm3 Hgb (13.5-18.0) gm/dL Hct (42.0-52.0) % MCV (78-100) fl MCH (27-31) pg Plt Count (150-450) K/mm3 Immature Gran % (Auto) (0.001-0.429) % Immature Gran # (Auto) (0.000-0.0310) K/mm3 Neutrophils % (42-75.0) % Lymphocytes % (20-51) % Lymphocytes # (1.5-3.5) k/mm3 Retic Hgb Content (29-35) pg Random Glucose (70-110) mg/dL Iron 22 L (35-120) mcg/dL TIBC 208 L (260-445) mcg/dL Transferrin % Sat 11 L (15-55) % Ferritin 500 H (26-388) ng/mL - Exam Constitutional: Present: Alert, Oriented x3, Cooperative, Well developed, Well nourished, Mild distress ENT Exam: Present: normal ENT inspection, hearing grossly normal, pharynx normal, TMs normal Neck: Present: non-tender, full range of motion, supple, normal inspection, trachea midline Breasts: Present: Exam deferred Respiratory: Present: chest non-tender Cardiovascular/Chest: Present: normal peripheral pulses Abdomen: Present: Normal bowel sounds /Rectal: Present: Exam deferred Extremity: Present: normal range of motion Skin Exam: Present: normal color Lymphatic: Present: no adenopathy Neurologic: Present: superintendent house II-XII nml as tested Appearance: Present: appropriate appearance Eye contact: Present: cooperative Thoughts: Present: normal thought pattern Cauti Physician Documentation - Urinary Catheter Management Urethral (Gao) Urethral Indwelling: No Date of Insertion: 11/15/18 Time of Insertion: 14:00 Date of Removal: 11/16/18 Time of Removal: 07:05 Assessment/Plan Plan Narrative: 1. Continue progress activity as tolerated 2. Discharge planning for more morning. - Problems/Diagnosis (1) Intertrochanteric fracture of right femur Problem: Acute Qualifiers: Encounter type: initial encounter Fracture type: closed Fracture alignment: displaced Qualified Code(s): S72.141A - Displaced intertrochanteric fracture of right femur, initial encounter for closed fracture (2) Fall Problem: Acute (3) Chronic alcoholism Problem: Chronic
[2018-11-17] MEDS: SENNOSIDES/DOCUSATE SODIUM 1 TAB TABLET PO SCH (21:26)
[2018-11-18 05:49] LABS: Urine Bilirubin Negative (NEGATIVE); Urine Blood Negative /ul (NEGATIVE); Urine Ketone Negative (NEGATIVE); Urine Nitrite Negative (NEGATIVE); Urine Protein Negative (NEGATIVE); Urine Specific Gravity 1.025 SP.GR. (1.005-1.030); Urine Urobilinogen Normal (NORMAL)
[2018-11-18 05:57] LABS: Urine Appearance Clear (CLEAR); Urine Bacteria TRACE; Urine Color Dark Yellow; Urine RBC None Seen /hpf (0-5); Urine WBC TRACE /hpf (0-5)
[2018-11-18] MEDS: oxyCODONE HCL/ACETAMINOPHEN 1 TAB TABLET PO PRN (07:46)
--- NOTE | 2018-11-18 09:40 | DS ---
(1) Intertrochanteric fracture of right femur Problem: Acute Qualifiers: Encounter type: initial encounter Fracture type: closed Fracture alignment: displaced Qualified Code(s): S72.141A - Displaced intertrochanteric fracture of right femur, initial encounter for closed fracture (2) Fall Problem: Acute (3) Chronic alcoholism Problem: Chronic Description of Stay: Bert casillas was out walking on snow that was over underlying ice and it made him fall. He was unable to get up. A neighbor has seen him fall and called for help. He was brought to the hospital per EMS because he was unable to bear weight as having severe pain in his right hip. Evaluation emergency room revealed presence of an intertrochanteric fracture of the right hip. He was taken to surgery and had an ORIF of the right hip. He had no intraoral or postoperative complications. He did spike a temperature to 38.7 last night. He was given a single dose of Tylenol and temperature went back to normal and he has had no more fever since that time. A CBC and chest x-ray have been ordered. He has been working with physical therapy and is weightbearing and ambulatory with a walker and contact guard assist. He is having moderate discomfort in the right hip but it is managed well with current medication. He otherwise remains healthy. He takes no chronic medications except for vitamins supplements. He is an alcoholic but I have not seen any evidence of withdrawal symptoms. He will be discharged to the [facility] for m[facility] and physical and occupational therapy rehabilitation. Procedures Performed: see notes below - ORIF of the right hip List Procedures: ORIF of right hip Results and Findings: Lab Pending Results 11/15/18 10:10: WBC 5.2 D, RBC 3.66 L, Hgb 13.0 L, Hct 37.2 L, MCV 101.6 H, MCH 35.5 H, MCHC 34.9, RDW 12.4, Plt Count 158, MPV 9.4, Immature Gran % (Auto) 0.40, Immature Gran # (Auto) 0.02, Neutrophils % 61.1, Lymphocytes % 27.7, Monocytes % 8.3, Eosinophils % 1.9, Basophils % 0.6, Nucleated RBC % 0.0, Neutrophils # 3.2, Lymphocytes # 1.43 L, Monocytes # 0.4, Eosinophils # 0.1, Absolute Basophils 0.0 11/15/18 10:10: Sodium 137, Plasma Sodium 137, Potassium 4.2, Chloride 100, Carbon Dioxide 25.6, Anion Gap 15.6 H, BUN 14, Creatinine 0.91, Est GFR (Non-Af Amer) 85, BUN/Creatinine Ratio 15.4, Random Glucose 127 H D, Calcium 8.4, Calcium Adj for Albumin 8.3 L, Total Bilirubin 0.9, AST 18, ALT 13 L, Alkaline Phosphatase 81, Total Protein 7.4, Albumin 3.7 11/15/18 10:20: Ethyl Alcohol Less than 3.0 11/16/18 05:20: WBC 4.8, RBC 2.88 L, Hgb 10.0 L, Hct 30.1 L, MCV 104.5 H, MCH 34.7 H, MCHC 33.2, RDW 12.6, Plt Count 140 L, MPV 10.0, Immature Gran % (Auto) 0.40, Immature Gran # (Auto) 0.02, Neutrophils % 62.7, Lymphocytes % 26.9, Monocytes % 9.2 H, Eosinophils % 0.4, Basophils % 0.4, Nucleated RBC % 0.0, Neutrophils # 3.0, Lymphocytes # 1.28 L, Monocytes # 0.4, Eosinophils # 0.0, Absolute Basophils 0.0 11/16/18 05:20: Sodium 137, Plasma Sodium 137, Potassium 4.2, Chloride 102, Carbon Dioxide 26.4, Anion Gap 12.8, BUN 15, Creatinine 0.98, Est GFR (Non-Af Amer) 78, BUN/Creatinine Ratio 15.3, Random Glucose 131 H, Calcium 8.2 11/17/18 05:10: WBC 6.4 D, RBC 2.44 L, Hgb 8.6 L, Hct 25.6 L, MCV 104.9 H, MCH 35.2 H, MCHC 33.6, RDW 12.6, Plt Count 117 L, MPV 9.8, Immature Gran % (Auto) 0.60 H, Immature Gran # (Auto) 0.04 H, Neutrophils % 76.2 H, Lymphocytes % 14.3 L, Monocytes % 7.9, Eosinophils % 0.5, Basophils % 0.5, Nucleated RBC % 0.0, Neutrophils # 4.9, Lymphocytes # 0.92 L, Monocytes # 0.5, Eosinophils # 0.0, Absolute Basophils 0.0 11/17/18 05:10: Sodium 133, Plasma Sodium 134, Potassium 4.5, Chloride 100, Carbon Dioxide 25.3, Anion Gap 12.2, BUN 22, Creatinine 1.06, Est GFR (Non-Af Amer) 71, BUN/Creatinine Ratio 20.8, Random Glucose 141 H, Calcium 8.2 11/17/18 05:10: Absolute Retic 0.0426, Percent Retic 1.7, Immature Retic Fraction 8.4, Retic Hgb Content 38.5 H 11/17/18 05:10: Ferritin 500 H, Vitamin B12 460, Folate 16.7 11/17/18 05:10: Iron 22 L, TIBC 208 L, Transferrin % Sat 11 L 11/17/18 21:33: Procalcitonin 0.11 11/18/18 05:35: Urine Color Dark yellow, Urine Appearance Clear, Urine pH 6.0, Ur Specific Pala 1.025, Urine Protein Negative, Urine Glucose (UA) Negative, Urine Ketones Negative, Urine Blood Negative, Urine Nitrate Negative, Urine Bilirubin Negative, Urine Urobilinogen Normal, Ur Leukocyte Esterase Negative, Urine RBC None seen, Urine WBC Trace, Ur Epithelial Cells Trace, Urine Bacteria Trace, Urine Comment No Print Discharge Location: [facility] Disposition: SNF Condition: Fair Face to Face Encounter completed per [facility] Guidelines: Yes Level of Care: SNF Discharge Activity: Activity as tolerated, Weight bearing Discharge Diet: General/regular food Long-Term Therapy: Physicial Therapy, Occupation Therapy Referrals: Timo Dejesus DO [Primary Care Provider] - Consultation Done:: orthopedics Additional Patient Instructions (free text): Dr Dejesus to follow at [facility]. Complete Home Medications List: Complete Home Medication List: Vit A/C/E/Zinc/Selenium/Copper [Vision Formula Tablet] 1 tab PO DAILY 04/01/18 vitamin B complex tablet 1 tab PO DAILY 04/06/18 Acetaminophen [Tylenol] 1,000 mg PO Q6H PRN tablet 11/18/18 Beta-Carotene(A) W-C , E/Min [Ocuvite] 1 tab PO DAILY tablet 11/18/18 Mag Hydrox/Aluminum Hyd/Simeth [Maalox Plus Suspension] 30 ml PO Q6H PRN #120 udc 11/18/18 Magnesium Hydroxide [Milk Of Magnesia] 30 ml PO DAILY PRN #120 udc 11/18/18 Sennosides/Docusate Sodium [Senokot-S] 2 tab PO HS PRN #20 tablet 11/18/18 Thiamine HCl 50 mg PO DAILY #30 tablet 11/18/18 Zolpidem Tartrate [Ambien] 5 mg PO HS PRN #30 tab 11/18/18 oxyCODONE HCL/ACETAMINOPHEN [Percocet 5 MG/325 MG] 1 tab PO Q4H PRN #60 tab 11/18/18
[2018-11-18 09:42] LABS: Mean Cell Volume 104.9 fl (78-100); Mean Corpuscular Hemoglobin 35.7 pg (27-31); Mean Platelet Volume 9.5 fl (8-11.3); Neutrophil # 5.6 K/mm3 (1.3-6.0); Neutrophil % 82.7 % (42-75.0); Platelet Count 112 K/mm3 (150-450); Red Blood Count 2.24 M/mm3 (4.7-6.0); Red Cell Distribution Width 12.6 % (11.5-14.0); White Blood Count 6.8 K/mm3 (4.0-10.5)
[2018-11-18] MEDS: VITAMIN B COMP W-C 1 TAB TABLET PO SCH (09:42)
[2018-11-18] MEDS: BETA-CAROTENE(A) W-C , E/MIN 1 TAB TABLET PO SCH (09:42)
[2018-11-18] MEDS: THIAMINE HCL 100 MG TABLET PO SCH (09:42)
[2018-11-18 09:44] LABS: Hematocrit 24.1 % (42.0-52.0)
[2018-11-18 13:21] VITALS: BP 124/55
--- NOTE | 2018-11-18 16:49 | PN ---
Progess Note - Interim Date: 11/18/18 Time: 08:30 Narrative: 11/18/18 16:43 Patient reports no acute events today. He notes he still has significant pain is unable to walk at this time. He does note he has 0 pain while sitting up in a chair. Nursing notified that patient had developed a fever overnight was given 1 dose of Tylenol and fever has not returned. Discussed with patient acute symptoms for illness, he reports none currently. He states he does not feels though he has a fever, no chills, cough, other systemic symptoms. Dressings were changed today reveal mild serosanguineous blood-tinged fluid from all sites minimally. Bandages were placed with gauze and tape. Exam today reveals 5/5 dorsiflexion plantar flexion of the ankle, diffuse tenderness along right hip, incisions have no significant drainage, moderate ecchymosis along patient's lateral thigh, sensation intact light touch, distal capillary refill brisk. Plan for discharge of patient to [facility]. Treatment of patient's fever per medicine. - 83 y/o female post-op day#3 s/p closed reduction with cephalomedullary nailing of right intertrochanteric femur fracture - WBAT, assistance as needed - PT/OT progress as tolerated - DVT Prophylaxis lovenox 4 weeks, jessa hose - PO diet as tolerated - PO pain medication PRN, Percocet 1-2 tabs every 4-6 hours as needed p.o. - Dressing changes with dry gauze and tape every 2-3 days as needed. - Follow-up in orthopedic outpatient clinic at 2 weeks postop
--- NOTE | 2018-11-24 15:20 | OR ---
Operative Report - Dictated Report Narrative: Date: 11/15/2018 Surgeon: Varinder Saleh M.D. Smoking Tobacco Packer Hand: Jose Jordan PA-C Preoperative diagnosis: Right intertrochanteric femur fracture Postoperative diagnosis: Right intertrochanteric femur fracture Operations and procedures: 1. Closed reduction, cephalo-medullary fixation right intertrochanteric femur fracture 2. Intraoperative interpretation of radiographs Anesthesia: Spinal Specimens: None Estimated blood loss: 200 Milliliters Retained implants: [employer] Trigen InterTAN 130 degree size 11.5 mm by 20 centimeter nail with 100 millimeter lag screw and 95 millimeter compression screw, with distal locking screw Complications: None Indications for procedure: Bert is a 83-year-old male who injured the right leg after a fall from standing height. They were admitted to the hospital after being evaluated in the emergency department. Once the medical provider felt that they were stable for surgical treatment, the risks and benefits alternatives were discussed. The risks of , blood clots, bleeding, infection, nerve/tendon/blood vessel injury, malunion, nonunion, failure of implants, painful implants, arthrosis, and need for additional procedures were discussed. The extremity was marked and consent was obtained on the floor. Procedure: After marking the operative extremity on the floor, the patient was taken to the operating room. A timeout was performed. IV antibiotics consisting of 1 g of Ancef was administered. A spinal anesthetic was induced by anesthesia, and the patient was then placed onto a fracture table with a well-padded perineal post. The non-operative leg was placed in a well-padded well leg fisher in lithotomy position with an SCD on the leg. The operative leg was placed in a well-padded traction boot. Longitudinal traction, internal rotation, flexion, and adduction were utilized in order to reduce the fracture. Preliminary images were attained utilizing C-arm in both the AP and lateral views. This confirmed that we had obtained adequate visualization of the fracture as well as reduction. Next the hip was then prepped and draped in a standard sterile fashion. Next, the guidewire was placed percutaneously proximal to the greater trochanter to elvin a starting point at the tip of the greater trochanter centered on the lateral view. This was advanced down to the level below the lesser trochanter. A scalpel was utilized to dissect down to the greater trochanter in order to lace the soft tissue protector down to bone. The entry reamer was then advanced down the proximal femur to the level of the lesser trochanter. The above nail was then selected and impacted into place. The outrigger was utilized in order to confirm the appropriate depth of the nail. Using the alignment device on the outrigger, a isa incision was made over the lateral femur. Sharp dissection was carried through the iliotibial band down to the proximal femur. The guidewire was was placed into the femoral head in a center center position on AP and lateral views. A tip apex distance less than 25 mm combined was obtained. Once we felt that we had placed the guidewire in the appropriate position, it was measured. Next the compression screw entry drill was advanced through the lateral cortex. This was then drilled down to the appropriate depth for the compression screw, again confirming that we are within the confines the bone. The derotational bar was then placed and the lag screw was drilled to the appropriate depth. The lag screw was then secured in place ensuring that we were within the confines of the bone. The compression screw was then inserted allowing for compression while releasing the traction on the leg. Using C-arm this was visualized to allow for compression across the fracture site. Once it was felt we had adequately stabilized the intertrochanteric fracture, the distal interlocking screw was placed in a static position confirmed to be the appropriate length and within the nail on both AP and lateral views. The nail was secured allowing for controlled compression and the outrigger was removed. The wounds were then thoroughly irrigated. Final images were obtained. The hip was placed through range of motion and showed no crepitance. The deep fascia was closed with 0 Vicryl, the subcutaneous tissue with 3-0 Vicryl, and the skin was closed with ranjan. Sterile dressings of Xeroform, 4 x 4s, and tegaderm were applied. All sponge, sharp, and instrument counts were correct prior to closing the wounds. The patient was then awoken and transferred to the postanesthesia care unit in stable condition.
== END 2018-11-18 13:35 | DRG 481 ==
LOC: ER 09:47 → MS 12:38
PROVIDERS: ADMIT Family Medicine; ATTEND Family Medicine
DX: F10.20 Alcohol dependence, uncomplicated; Z23 Encounter for immunization; D53.9 Nutritional anemia, unspecified; S72.141A Displaced intertrochanteric fracture of right femur, initial encounter for closed fracture; K59.01 Slow transit constipation; Z87.891 Personal history of nicotine dependence; S50.11XA Contusion of right forearm, initial encounter; D62 Acute posthemorrhagic anemia; W00.0XXA Fall on same level due to ice and snow, initial encounter
CPT/HCPCS: 36415; 70450; 71010; 71045; 72125; 73502; 73552; 76000; 80048; 80053; 80320; 81001; 82607; 82728; 82746; 83540; 83550; 84145; 85025; 85045; 87040; 87086; 90471; 93005; 96374; 96375; 97110; 97162; 97165; 97530; 99285; G0481; J2405